=== PATIENT | female | born 1995 | race Caucasian/White ===

== ENCOUNTER 2016-08-09 17:28 | Emergency (ER) | payer OTHER ==
[2016-08-09 18:33] LABS: BILIRUBIN 1+ mg/dL (NEGATIVE); BLOOD NEGATIVE Ery/uL (NEGATIVE); CLARITY CLEAR (CLEAR); COLOR STRAW (YELLOW); GLUCOSE (U) NORMAL (NORMAL); KETONE (U) 3+ (LARGE) mg/dL (NEGATIVE); LEUKOCYTES 1+ Leu/uL (NEGATIVE); NITRITE NEGATIVE (NEGATIVE); PROTEIN 1+ mg/dL (NEGATIVE); SPECIFIC GRAVITY 1.025 (1.001-1.030); pH 6.5 (5.0-9.0)
[2016-08-09 18:39] LABS: BACTERIA 1+; MUCOUS LARGE; SQUAMOUS EPITHELIAL CELLS >50
[2016-08-09 19:05] LABS: ALBUMIN 5.1 g/dL (3.5-5.0); BILIRUBIN - TOTAL 0.8 mg/dL (0.1-1.0); CREATININE 0.7 mg/dL (0.5-1.0); GLOBULIN (CALCULATION) 2.2 g/dL (2.2-4.2); POTASSIUM 3.4 mmol/L (3.5-5.1); TOTAL PROTEIN 7.3 g/dL (6.4-8.3)
[2016-08-09 19:12] LABS: BASOPHIL 0.3 % (0-2); EOSINOPHIL 0.4 % (0-5); HCT 40.2 % (37.0-47.0); HGB 14.2 g/dl (12.5-16.0); LYMPHOCYTE 18.9 % (15-48); MCH 31.9 pg (25.0-31.0); MCHC 35.3 g/dL (32.0-36.0); MCV 90.3 fL (78.0-100.0); MONOCYTE 9.3 % (0-12); MPV 10.3 fL (6.0-9.5); NEUTROPHIL 71.1 % (41-80); PLT 332 K/uL (150-400); RBC 4.45 M/uL (4.20-5.40); RDW 12.5 % (11.5-14.0); WBC 11.1 K/uL (4.0-10.5)
== END 2016-08-09 20:35 | disposition home or self-care (01) ==
LOC: FER 17:28
PROVIDERS: Emergency Medicine
DX: O21.9 Vomiting of pregnancy, unspecified (principal); Z3A.00 Weeks of gestation of pregnancy not specified
CPT/HCPCS: 36415; 80053; 81001; 82150; 83690; 85025; 87804; 87899

== ENCOUNTER 2022-01-25 12:24 | Emergency (ER) | payer OTHER ==
[2022-01-25 14:52] LABS: BASOPHIL 0.3 % (0-2); EOSINOPHIL 3.2 % (0-5); HCT 41.8 % (37.0-47.0); HGB 14.2 g/dl (12.5-16.0); MCH 32.4 pg (25.0-31.0); MCV 95.4 fL (78.0-100.0); MONOCYTE 7.7 % (0-12); MPV 9.6 fL (6.0-9.5); NEUTROPHIL 63.6 % (41-80); NRBC 0; PLT 250 K/uL (150-400); RBC 4.38 M/uL (4.20-5.40); RDW 12.1 % (11.5-14.0); WBC 9.1 K/uL (4.0-10.5)
[2022-01-25 15:12] LABS: ALBUMIN 4.2 g/dL (3.4-5.0); BILIRUBIN - TOTAL 0.4 mg/dL (0.2-1.0); BUN/CREAT RATIO (CALC) 8.8 RATIO; CREATININE 0.68 mg/dL (0.51-0.95); GLOBULIN (CALCULATION) 2.8 g/dL; POTASSIUM 3.5 mmol/L (3.5-5.1)
[2022-01-25 15:47] LABS: BILIRUBIN NEGATIVE (NEGATIVE); BLOOD NEGATIVE Ery/uL (NEGATIVE); CLARITY CLEAR (CLEAR); COLOR YELLOW (YELLOW); GLUCOSE (U) NORMAL (NORMAL); LEUKOCYTES NEGATIVE Leu/uL (NEGATIVE); NITRITE NEGATIVE (NEGATIVE); PROTEIN NEGATIVE (NEGATIVE); UROBILINOGEN 0.2 mg/dL (0.2-1.0); pH 7.5 (5.0-9.0)
[2022-01-25] MEDS ORDERED: PINWORM TR50 MG/1 ML PO ×2 (18:48→18:50)
[2022-01-25] MEDS ORDERED: ONDANSETRON ODT4 MG PO (18:50)
== END 2022-01-25 19:04 | disposition home or self-care (01) ==
LOC: FER 12:24
PROVIDERS: Emergency Medicine; Physician Assistant
DX: K29.70 Gastritis, unspecified, without bleeding (principal); Z28.310 Unvaccinated for COVID-19; Z91.09 Other allergy status, other than to drugs and biological substances
CPT/HCPCS: 36415; 74018; 80053; 81003; 83690; 85025; 86677; J1885; J2405; J7030

== ENCOUNTER 2022-02-26 13:11 | Emergency (ER) | payer OTHER ==
[~2022-02-26 13:11] MED LIST: ONDANSETRON ODT4 MG PO; PINWORM TR50 MG/1 ML PO
[2022-02-26 14:23] LABS: CORONAVIRUS 2019 SARS-COV-2 NEGATIVE (NEGATIVE); INFLUENZA A NAA NEGATIVE (NEGATIVE)
[2022-02-26 14:33] LABS: BASOPHIL 0.4 % (0-2); EOSINOPHIL 2.1 % (0-5); HCT 41.4 % (37.0-47.0); HGB 14.2 g/dl (12.5-16.0); LYMPHOCYTE 10.3 % (15-48); MCH 32.6 pg (25.0-31.0); MCHC 34.3 g/dL (32.0-36.0); MCV 95.2 fL (78.0-100.0); MONOCYTE 6.4 % (0-12); MPV 9.5 fL (6.0-9.5); NEUTROPHIL 80.5 % (41-80); NRBC 0; PLT 259 K/uL (150-400); RBC 4.35 M/uL (4.20-5.40); RDW 11.8 % (11.5-14.0); WBC 13.5 K/uL (4.0-10.5)
[2022-02-26 15:06] LABS: INR 1.01 (0.9-1.2); PTT 28.1 SECONDS (24.9-34.6)
[2022-02-26 15:13] LABS: ALKALINE PHOSHATASE 53 U/L (46-116); ALT 14 U/L (14-59); AST 20 U/L (15-37); BILIRUBIN - TOTAL 0.6 mg/dL (0.2-1.0); BUN 6 mg/dL (7-18); BUN/CREAT RATIO (CALC) 9.4 RATIO; CHLORIDE 102 mmol/L (98-107); CO2 (BICARBONATE) 24 mmol/L (21-32); CREATININE 0.64 mg/dL (0.51-0.95); GLOBULIN (CALCULATION) 3.5 g/dL; GLUCOSE 98 mg/dL (74-106); POTASSIUM 3.7 mmol/L (3.5-5.1); TOTAL PROTEIN 7.5 g/dL (6.4-8.2)
[2022-02-26] MEDS ORDERED: TRIMOX250 MG/5 M PO (17:17)
[2022-02-26] MEDS ORDERED: VENTOLIN HFA IN18 GM INH (17:46)
== END 2022-02-26 17:44 | disposition home or self-care (01) ==
LOC: FER 13:11
PROVIDERS: Emergency Medicine
DX: J20.9 Acute bronchitis, unspecified (principal); Z20.822 Contact with and (suspected) exposure to COVID-19; Z91.048 Other nonmedicinal substance allergy status
CPT/HCPCS: 36415; 71045; 80053; 84484; 85025; 85610; 85730; 93005; J1100; U0002